=== PATIENT | female | born 1985 | race Caucasian/White ===

== ENCOUNTER → 2021-11-10 | Outpatient (CLI) | payer OTHER ==
[~2021-11-10] MED LIST: ALBU90OI INH; FERR325 PO; Fabb Tablet1 EACH PO; NITR100CA PO; PRENATAL MULTI1 EAC3 PO; PROG100 PO; Verotin-Gr Cap1 EACH PO
[2021-11-12 08:10] LABS: HPV 16 Negative (Negative); HPV 18 Positive (Negative); HPV OTHER HR TYPES Positive (Negative)
== END | disposition home or self-care (01) ==
LOC: LAB SHORT 12:16 → LAB 12:16
PROVIDERS: Obstetrics & Gynecology
DX: Z12.4 Encounter for screening for malignant neoplasm of cervix (principal)
CPT/HCPCS: 87624; 87625; G0123

== ENCOUNTER 2023-09-06 10:05 | Inpatient (IN) | payer OTHER ==
[2023-09-06] VITALS (21 sets, daily range): BP systolic 73–122; BP diastolic 53–84
[~2023-09-06] VITALS: Ht 157.5 cm; Wt 74.0 kg
[2023-09-06] MEDS ORDERED: Lactated Ringer's 1,000 ML IV SCH ×2 (10:50→14:05)
[2023-09-06] MEDS ORDERED: Citric Acid/Sodium Citrate 30 ML BTL PO SCH (10:50)
[2023-09-06] MEDS ORDERED: Metoclopramide HCl 5MG / ML 2ML Vial IV ONE (10:50)
[2023-09-06] MEDS ORDERED: CefOXitin Sodium 2,000 MG in NS 50 ML IV ONE (10:55)
[2023-09-06 11:11] LABS: BASOPHILS ABSOLUTE AUTO 0.03 K/mm3 (0.00-0.23); BASOPHILS PERCENT AUTO 0 % (0-2); EOSINOPHILS ABSOLUTE AUTO 0.06 K/mm3 (0.00-0.68); EOSINOPHILS PERCENT AUTO 1 % (0-6); Hematocrit 35.3 % (33.0-51.0); Hemoglobin 12.2 g/dL (11.5-16.0); IMMATURE GRAN ABSOLUTE AUTO 0.05 K/mm3 (0.00-0.10); IMMATURE GRAN PERCENT AUTO 1 % (0-1); LYMPHOCYTES ABSOLUTE AUTO 1.38 K/mm3 (0.84-5.20); LYMPHOCYTES PERCENT AUTO 19 % (21-46); MONOCYTES ABSOLUTE AUTO 0.55 K/mm3 (0.16-1.47); MONOCYTES PERCENT AUTO 8 % (4-13); Mean Corpuscular HGB Conc 34.6 g/dL (31.5-36.5); Mean Corpuscular Volume 90 fL (80-100); Mean Platelet Volume 11.2 fL (9.1-12.4); NEUTROPHILS ABSOLUTE AUTO 5.12 K/mm3 (1.96-9.15); NEUTROPHILS PERCENT AUTO 71 % (41-73); Platelet Count 152 K/mm3 (150-400); RDW Coefficient Variation 12.9 % (11.7-14.2); RDW Standard Deviation 42.1 fL (35.1-46.3); Red Blood Cell Count 3.93 M/mm3 (3.80-5.20); White Blood Cell Count 7.19 K/mm3 (4.00-11.30)
[2023-09-06] MEDS ORDERED: FentaNYL Citrate 50 MCG/ML 2 ML Injection ONE (12:34)
[2023-09-06] MEDS ORDERED: Oxytocin 10 Unit / ML Vial ONE ×3 (12:35→13:26)
[2023-09-06] MEDS ORDERED: ePHEDrine Sulfate 50 MG/ML 1ML Injection ONE (12:54)
[2023-09-06] MEDS ORDERED: Phenylephrine HCl 100 MCG/ML-NS 10MLSYR (1MG/10ML) ONE (13:00)
--- NOTE | 2023-09-06 13:22 | NUR ---
09/06/23 1322 Sammi Lin VIABLE FEMALE DELIVERED AT 1312 VIA REPEAT . VAC USED TO DELIVER, CONTROLLED BY DR. SERRANO. CORD BLOOD GIVEN TO ROXANNA BENAVIDES
[2023-09-06] MEDS ORDERED: Magnesium Hydroxide Conc 10 ML UDC PO PRN (14:05)
[2023-09-06] MEDS ORDERED: DiphenhydrAMINE HCL 25 MG Cap PO PRN (14:05)
[2023-09-06] MEDS ORDERED: Methylergonovine Maleate 0.2MG / ML 1ML Amp IM PRN (14:05)
[2023-09-06] MEDS ORDERED: Acetaminophen 500 MG Tab PO PRN (14:05)
[2023-09-06] MEDS ORDERED: Simethicone 80 MG Chew PO PRN (14:10)
[2023-09-06] MEDS ORDERED: Misoprostol 200 MCG Tab PR PRN (14:10)
[2023-09-06] MEDS ORDERED: OxyCODONE HCL 5 MG TAB PO PRN (14:10)
[2023-09-06] MEDS ORDERED: Lanolin Cream TOP PRN (14:10)
[2023-09-06] MEDS ORDERED: Ondansetron HCl 2 MG / ML 2ML Vial IV PRN (14:10)
[2023-09-06] MEDS ORDERED: OxyCODONE 5 mg/Acetamin 325 mg TABLET PO PRN (14:10)
--- NOTE | 2023-09-06 14:47 | NUR ---
DRESSING SATURATED WITH BRIGHT RED BLOOD. PRESSURE DRESSING APPLIED WITH ROXANNA GARCIA. WILL CONTINUE TO MONITOR.
[2023-09-06] MEDS ORDERED: Ketorolac Tromethamine 30mg Vial IV SCH (15:00)
[2023-09-06] MEDS ORDERED: OXYTOCIN/RINGER'S LACTATE 500 ML IV SCH (15:00)
--- NOTE | 2023-09-06 19:23 | NUR ---
REPORT TO ROXANNA PARHAM
[2023-09-06] MEDS ORDERED: Docusate Sodium 100 MG Cap PO SCH (21:00)
--- NOTE | 2023-09-06 22:20 | NUR ---
ASKED Anmol FARRAR TO ASSESS INCISION DUE TO DRESSING BEING CHANGED X2 AND THERE BEING SERIOUSANGIOUS FLUID ON THE DRESSING AGAIN. SARAH INTO PTS ROOM AT 2220 TO ASSESS INCISION. SARAH TOOK OFF MEDIPORE DRESSING AND NOTES THAT THE STERI STRIPS ARE RED WITH DRIED BLOOD BUT THERE IS NO ACTIVE BLEEDING NORE IS THERE ANY OOZING OF SERIOUSANGIOUS FLUID. SARAH THEN REPLACED THE MEDIPORE DRESSING AND ADVISED THAT IF THE MEDIPORE DRESSING BECOMES SATURATED AGAIN, CALL . CONTINUE TO ASSESS AND MONITOR PTS INCISION AT THIS TIME.
--- NOTE | 2023-09-06 22:45 | NUR ---
REPORT TO TU BACH.
[2023-09-07 00:36] VITALS: BP 103/59
[2023-09-07 05:03] VITALS: BP 112/59
[2023-09-07 06:21] LABS: BASOPHILS ABSOLUTE AUTO 0.04 K/mm3 (0.00-0.23); BASOPHILS PERCENT AUTO 0 % (0-2); EOSINOPHILS ABSOLUTE AUTO 0.16 K/mm3 (0.00-0.68); EOSINOPHILS PERCENT AUTO 2 % (0-6); Hematocrit 32.5 % (33.0-51.0); Hemoglobin 11.2 g/dL (11.5-16.0); IMMATURE GRAN ABSOLUTE AUTO 0.05 K/mm3 (0.00-0.10); IMMATURE GRAN PERCENT AUTO 1 % (0-1); LYMPHOCYTES PERCENT AUTO 20 % (21-46); MONOCYTES ABSOLUTE AUTO 0.85 K/mm3 (0.16-1.47); MONOCYTES PERCENT AUTO 9 % (4-13); Mean Corpuscular HGB 31.5 pg (26.0-34.0); Mean Corpuscular HGB Conc 34.5 g/dL (31.5-36.5); Mean Corpuscular Volume 92 fL (80-100); Mean Platelet Volume 10.6 fL (9.1-12.4); NEUTROPHILS PERCENT AUTO 68 % (41-73); Platelet Count 131 K/mm3 (150-400); RDW Standard Deviation 42.9 fL (35.1-46.3); Red Blood Cell Count 3.55 M/mm3 (3.80-5.20)
[2023-09-07] MEDS ORDERED: Ibuprofen 400 MG Tab PO SCH (08:00)
[2023-09-07 08:28] VITALS: BP 112/57
[2023-09-07] MEDS ORDERED: Prenatal Vit/FE Fumarate/FA 1 Tab PO SCH (09:00)
[2023-09-07 12:42] VITALS: BP 124/67
[2023-09-07] MEDS ORDERED: Percocet 5-3251 EACH PO (13:13)
[2023-09-07] MEDS ORDERED: IBUP800 PO (13:14)
[2023-09-07 16:58] VITALS: BP 123/82
== END 2023-09-07 18:15 | disposition home or self-care (01) | DRG 785 ==
LOC: BC 10:41
PROVIDERS: ADMIT Obstetrics & Gynecology
PROC: 10D00Z1 Extraction of Products of Conception, Low, Open Approach (ICD-10-PCS; principal; 2023-09-06 12:30)
PROC: 0UT70ZZ Resection of Bilateral Fallopian Tubes, Open Approach (ICD-10-PCS; 2023-09-06 12:30)
DX: O34.211 Maternal care for low transverse scar from previous cesarean delivery (principal); Z3A.39 39 weeks gestation of pregnancy; Z37.0 Single live birth; Z30.2 Encounter for sterilization
CPT/HCPCS: 36415; 85025; 86850; 86900; 86901; 86923; 88302; A9270; J0694; J1885; J2371; J2590; J2765; J3010; J7120

== ENCOUNTER → 2024-11-07 | Outpatient (CLI) | payer OTHER ==
[~2024-11-07] MED LIST changes: +IBUP800 PO; +Percocet 5-3251 EACH PO
== END ==
LOC: LAB SHORT 17:17 → LAB 17:17
PROVIDERS: Obstetrics & Gynecology
DX: Z12.4 Encounter for screening for malignant neoplasm of cervix (principal)
CPT/HCPCS: 87624; G0145